=== PATIENT | male | born 1960 | race Caucasian/White ===

== ENCOUNTER 2017-03-30 06:46 | Emergency (ER) | payer BC ==
[2017-03-30] MEDS ORDERED: ASPIRIN 81 MG CHEWABLE CTB ONE (06:52)
[2017-03-30] MEDS ORDERED: ASPIRIN 81 MG CHEWABLE CTB PO ONE (06:54)
[2017-03-30] MEDS ORDERED: HYDROCHLOROTHIAZIDE 25 MG TAB PO SCH (07:00)
[2017-03-30] MEDS ORDERED: HYDROCHLOROTHIAZIDE 25 MG TAB ONE (07:01)
[2017-03-30 07:09] VITALS: TEMP 97.8
[2017-03-30] MEDS ORDERED: SODIUM CHLORIDE 0.9% FLUSH 10 ML SOL IV PRN (07:09)
[2017-03-30 07:14] LABS: BASOPHILS % (AUTO) 1 % (0-3); EOSINOPHILS % (AUTO) 1 % (0-9); HEMATOCRIT 42 % (39-53); MEAN CORPUSCULAR HGB CONC 35.2 gm/dl (32.0-36.0); MONOCYTES % (AUTO) 7.7 % (0-12); NEUTROPHILS % (AUTO) 65.2 % (37-80)
[2017-03-30 07:15] LABS: MEAN CORPUSCULAR VOLUME 81 fL (80-100)
[2017-03-30 07:26] LABS: CALCIUM 8.9 mg/dl (8.5-10.1); GLOM FILT RATE 70 mL/min (>60); POTASSIUM 3.8 mMol/L (3.5-5.1); SODIUM 139 mMol/L (136-145)
[2017-03-30 09:35] VITALS: O2SAT 97
[2017-03-30 09:36] VITALS: BP 139/92; PULSE 59; RESP 12
== END 2017-03-30 08:19 | disposition home or self-care (01) ==
LOC: ED 06:46
DX: R07.89 Other chest pain (principal)
CPT/HCPCS: 71046; 80048; 83880; 84484; 85025; 93005; 99285